=== PATIENT | female | born 1945 | race Caucasian/White ===

== ENCOUNTER 2018-04-15 13:12 | Outpatient (CLI) | payer MEDICARE | END 2018-04-15 13:13 | disposition home or self-care (01) | LOC: BICMAMMO 13:12 | PROVIDERS: ATTEND Internal Medicine Medical Oncology | DX: Z12.31 Encounter for screening mammogram for malignant neoplasm of breast (principal); R92.1 Mammographic calcification found on diagnostic imaging of breast; Z85.3 Personal history of malignant neoplasm of breast; Z80.3 Family history of malignant neoplasm of breast | CPT/HCPCS: 77065; G0279 ==

== ENCOUNTER 2019-06-03 13:52 | Outpatient (CLI) | payer MEDICARE ==
--- NOTE | 2019-06-03 15:43 | BD ---
Exam: DEXA Bone Density 06/03/19 COMPARISON: 01/14/14 HISTORY: 74-year-old postmenopausal female for screening. FINDINGS: Lumbar Spine: BMD (g/cm2) T-SCORE L1 0.823 -1.5 L2 0.791 -2.2 L3 0.926 -1.4 L4 0.910 -1.4 L1-L4 0.867 -1.6 Left Femoral Neck: 0.595 -2.3 Total Proximal Femur: 0.853 -0.7 Impression:Osteopenia. This patient has a ten year WHO fracture risk of a major osteoporotic of 13% and hip fracture of 3.5% . When compared to the prior examination, the bone density in the spine has increased approximately 4 % and the bone density in the hip has not changed significantly. POS: TPC
--- NOTE | 2019-06-03 15:52 | MMO ---
Bilateral MAMMO Bilat Screen [facility]DI[facility]YONG. CLINICAL HISTORY: Patient is 74 years old and is seen for screening. The patient has no family history of breast cancer. 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 The patient has a history of right Lumpectomy in 2009 - malignant and right Excisional Biopsy in September, - malignant. VIEWS: The views performed were: bilateral craniocaudal with tomosynthesis and bilateral mediolateral oblique with tomosynthesis. FILMS COMPARED: The present examination has been compared to prior imaging studies performed at [facility] on 03/22/2016, 03/28/2017, 04/02/2018 and 04/15/2018. This study has been interpreted with the assistance of computer-aided detection. MAMMOGRAM FINDINGS: The breasts are heterogeneously dense, which could obscure a lesion on mammography. Finding 1: There are stable post operative changes seen in the right breast. Finding 2: There are stable benign appearing calcifications seen in both breasts. There are no suspicious masses, suspicious calcifications, or new areas of architectural distortion. IMPRESSION: THERE IS NO MAMMOGRAPHIC EVIDENCE OF MALIGNANCY. A ROUTINE FOLLOW-UP MAMMOGRAM IN 1 YEAR IS RECOMMENDED. THE RESULTS OF THIS EXAM WERE SENT TO THE PATIENT. ACR BI-RADS Category 2 - Benign finding MAMMOGRAPHY NOTE: 1. A negative mammogram report should not delay a biopsy if a dominant of clinically suspicious mass is present. 2. Approximately 10% to 15% of breast cancers are not detected by mammography. 3. Adenosis and dense breasts may obscure an underlying neoplasm. Reported by: MIMI SHAHID MD Electonically Signed: [id number]
== END 2019-06-03 13:53 | disposition home or self-care (01) ==
LOC: BICMAMMO 13:52
PROVIDERS: ATTEND Internal Medicine Medical Oncology
DX: Z12.31 Encounter for screening mammogram for malignant neoplasm of breast (principal); C50.919 Malignant neoplasm of unspecified site of unspecified female breast; M85.80 Other specified disorders of bone density and structure, unspecified site; M85.852 Other specified disorders of bone density and structure, left thigh
CPT/HCPCS: 77063; 77067; 77080

== ENCOUNTER 2019-07-08 20:16 | Observation (INO) | payer MEDICARE ==
--- NOTE | 2019-07-08 21:21 | CT ---
CT Cervical Spine WO Con Indication: History of fall with left arm numbness COMPARISON: None. FINDINGS: Fracture: None. Spinal alignment: There is anterior translation of C4 on C5 which is likely degenerative. Craniocervical junction: Within normal limits. Vertebral body heights: Maintained. Cervical spine degenerative change: There is moderate multilevel spondylosis of the cervical spine wi th multilevel facet and disc degenerative disease. Disc degenerative disease is pronounced at C3-4 and C4-5. There is a prominent disc osteophyte complex with uncovertebral hypertrophy on the left at C5-C6 causing severe left and mild right neural foraminal narrowing. There is uncovertebral hypertrophy and facet degenerative change on the left at C6-7 inducing moderate to severe left neural foraminal narrowing. Lung apices: Pleural parenchymal scarring involving both lung apices. IMPRESSION: No acute fracture or subluxation demonstrated. Moderate spondylosis of the cervical spine with left-sided neural foraminal narrowing at C5-6 and C6- 7
--- NOTE | 2019-07-08 22:18 | PDOC.FPRHP ---
- History of Present Illness Chief Complaint: Paresthesia History of Present Illness: 74yo female pt presented to outside ED [facility] complaining of left arm numbness and weakness. 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 She related the feeling as similar to when she has laid on her arm for a long time in the past. Pt received a CT of her head which showed chronic ischemic changes and was subsequently transferred here for further workup. Upon arrival she received a CT spine which showed arthritic changes. Pt denied any continued symptoms at time of evaluation. She denied ever experiencing any changes in speech, gait, facial droop, or numbness/ weakness anywhere other than her left arm. Pt notes a hx of HLD that is not currently treated per pt preference. Pt had a fall last week resulting in her striking the right side of her face on the concrete w/ subsequent periorbital ecchymosis. She denies any neurologic sx following her fall. - Allergies/Adverse Reactions Allergies Allergy/AdvReac Type Severity Reaction Status Date / Time erythromycin base Allergy blisters Verified 07/09/19 00:50 on palm of hand Penicillins Allergy Hives Verified 07/09/19 00:50 - Home Medications Medication Instructions Recorded Confirmed Type Aspirin [Ecotrin Low Strength] 81 mg PO DAILY tab 07/09/19 Rx Atorvastatin Calcium [Lipitor] 40 mg PO HS #30 tab 07/09/19 Rx - History PMHx: Breast cancer, HLD PSHx: Lumpectomy FHx: Non contributory Social: Denies hx of tobacco or drug use. Notes very occasional alcohol consumption. - Review of Systems General: denies: fever/chills, fatigue Eyes: denies: vision changes, other ENT: denies: nasal congestion, rhinorrhea Respiratory: denies: cough, shortness of breath Cardiovascular: denies: chest pain, edema Gastrointestinal: denies: nausea, vomiting, diarrhea Genitourinary: denies: dysuria, polyuria Skin: reports: other (ecchymosis). denies: rashes, lesions Musculoskeletal: denies: pain, tenderness Neurological: reports: numbness, weakness. denies: syncope, seizure Psychological: denies: anxiety, depression, other - Vital signs BP: 132/72, Pulse: 93, Resp: 18, Temp: 97.8 (Oral), Pain: 0, O2 sat: 96 on Room Air - Physical Exam Constitutional: NAD, awake, alert and oriented, well developed HEENT: normocephalic and atraumatic, PERRLA, EOMI, grossly normal vision, grossly normal hearing Neck: supple, FROM (without pain or radiating sx) Heart: RRR, normal S1/S2, no murmurs/rubs/gallops Lungs: CTAB, no respiratory distress, good air movement Abdomen: soft, non-tender Musculoskeletal: normal structure, normal tone Neurological: no focal deficit, CN II-XII intact, normal sensation, DTRs 2+ Skin: no rash/lesions, good turgor Heme/Lymphatic: no unusual bruising or bleeding, no purpura Psychiatric: normal mood and affect, good judgment and insight, intact recent and remote memory FMR H&P: Results - Labs Result Diagrams: 07/09/19 04:52 - Radiology Interpretation Other Status: report reviewed by me (CT neck No acute fracture or subluxation demonstrated. Moderate spondylosis of the cervical spine with left-sided neural foraminal narrowing at C5-6 and C6- 7) CT scan - head Status: report reviewed by me (Mild chronic ischemic white matter changes. No acute abnormality) FMR H&P: A/P - Problem List (1) Cervical radiculopathy Status: Acute Code(s): M54.12 - RADICULOPATHY, CERVICAL REGION (2) HLD (hyperlipidemia) Status: Acute Code(s): E78.5 - HYPERLIPIDEMIA, UNSPECIFIED Qualifiers: Hyperlipidemia type: unspecified Qualified Code(s): E78.5 - Hyperlipidemia , unspecified (3) Elevated blood pressure reading Status: Acute Code(s): R03.0 - ELEVATED BLOOD-PRESSURE READING, W/O DIAGNOSIS OF HTN - Plan Paresthesias 2/2 Cervical Radiculopathy vs TIA - CT findings as above - MRI w/o contrast brain and cervical spine - Admit to stroke floor for neuro checks - Will initiate asa and statin therapy - TSH ordered - FLP and A1c to risk stratify HLD - Known to pt, untreated per pt preference - Discussed statin therapy benefits, will empirically initiate at this time Diet: HH Code: Full Dispo: Admit to stroke obs for further neuro imaging and neuro checks. Expected LOS < 48 hrs PCP: None FMR H&P: Upper Level - Plan Date/Time: 07/08/192217 I, Alton Ornelas MD, have evaluated this patient and agree with findings/plan as outlined by medical intern resident. Pertinent changes/additions are listed here. Levi Beaver is a 74 year old F with no significant PMH who presented to outside ED for evaluation of left arm numbness. States that numbness started earlier in the day. She has had numbness like this occasionally in the past. Denies any pain or weakness in the arm or other extremities. Denied neck pain. Denies any difficulty speaking or facial droop. In the ED, CT brain was done and showed chronic ischemic changes. Pt was transferred to [facility] ER for further work up. Patient had a CT cervical spine done that showed left sided neural foraminal narrowing at C5-C6. She denied any chest pain, dyspnea, n/v, diaphoresis. Patient states that numbness had resolved in the ED. Pt's vitals were stable and wnl in the ED. She is being admitted for sensory deficits and work up for TIA r/o CVA. Symptoms could be 2/2 cervical radiculopathy. Ordered brain MRI and neck MRI, as well as carotid dopplers. Will start aspirin and statin. Anticipate hospital stay < 48 hours and d/c home. Please see medical intern note above for full H&P, which I have reviewed and agree with. Addendum - Attending - Attending Attestation Date/Time: 07/09/192048 I personally evaluated the patient and discussed the management with Dr. Dawson and Johnson on 07/08. I agree with the History, Examination, Assessment and Plan documented above with any addition or exceptions noted below. Very pleasant 74 y/o female. No current symptoms. Unremarkable neurologic exam. W/u as above.
[2019-07-08 22:35] LABS: Troponin I Less than 0.010 ng/mL (< 0.028)
[2019-07-09] MEDS ORDERED: Acetaminophen 325 MG TAB PO PRN (00:17)
[2019-07-09 01:06] VITALS: BMI 23.1
[2019-07-09 01:26] LABS: Troponin I Less than 0.010 ng/mL (< 0.028)
--- NOTE | 2019-07-09 05:32 | PDOC.FM ---
- Subjective Subjective: Patient states that she had recurrent sensation of left hand pain and numbness overnight, this improved shortly after repositioning herself. Otherwise denies chest pain/tightness, sob, nausea/vomiting. - Objective MAR Reviewed: Yes Vital Signs & Weight: Vital Signs (12 hours) Temp Pulse Resp BP BP Pulse Ox 07/09/19 02:05 76 18 134/67 96 07/09/19 00:30 97.9 F 81 15 168/69 H 96 Weight Weight 61.235 kg I&O: 07/07/19 07/08/19 07/09/19 06:59 06:59 06:59 Intake Total 200 Output Total 450 Balance -250 Result Diagrams: 07/09/19 04:52 Phys Exam - Physical Examination Constitutional: NAD HEENT: moist MMs, sclera anicteric Neck: no JVD, supple, full ROM Respiratory: no wheezing, no rhonchi, clear to auscultation bilateral Cardiovascular: RRR, no significant murmur Gastrointestinal: no distention, positive bowel sounds Musculoskeletal: no edema, pulses present Neurological: normal sensation, moves all 4 limbs Psychiatric: normal affect, A&O x 3 Skin: no rash, normal turgor Dx/Plan (1) Cervical radiculopathy Code(s): M54.12 - RADICULOPATHY, CERVICAL REGION Status: Acute (2) Elevated blood pressure reading Code(s): R03.0 - ELEVATED BLOOD-PRESSURE READING, W/O DIAGNOSIS OF HTN Status : Acute (3) HLD (hyperlipidemia) Code(s): E78.5 - HYPERLIPIDEMIA, UNSPECIFIED Status: Acute Qualifiers: Hyperlipidemia type: unspecified Qualified Code(s): E78.5 - Hyperlipidemia , unspecified - Plan Plan: Patient is a 74 yo female who presents with left arm paresthesias is admitted for further workup: #Left Arm Paresthesias - most likely 2/2 Cervical Radiculopathy vs TIA - CT neck: left sided neural foraminal narrowing at C5-6 & C6-7 - Ordered MRI w/o contrast brain and cervical spine - Carotid dopplers show no significant stenosis - q4h neuro checks - Start asa and statin therapy - TSH pending - FLP and A1c pending to risk stratify #HLD - Known to pt, untreated per pt preference - Discussed statin therapy benefits, will empirically initiate at this time Diet: HH VTE: SCDs Code: FULL Dispo: Admit to stroke obs for further neuro imaging and neuro checks. Labs pending. Expected LOS < 48 hrs PCP: Liya
[2019-07-09 05:55] LABS: Hemoglobin A1c 5.3 % (4.0-6.0)
[2019-07-09 06:11] LABS: Anion Gap 13 mmol/L (10-20); BUN (Urea Nitrogen) 9 mg/dL (9.8-20.1); Calc. Creatinine Clearance 69 mL/min (70-130); Calcium 8.8 mg/dL (7.8-10.44); Carbon Dioxide 27 mmol/L (23-31); Cardiac Risk 7.5 (Less than 4.5); Chloride 104 mmol/L (98-107); Cholesterol 330 mg/dl (< 200 Desired); Estimated GFR-MDRD 82; Glucose 87 mg/dL (83-110); HDL Cholesterol 44 mg/dL (>60 Neg Risk); LDL Cholesterol, Calculated 258 mg/dL; Potassium 3.5 mmol/L (3.5-5.1); Sodium 140 mmol/L (136-145); Triglycerides 141 mg/dL (Less than 150)
[2019-07-09 06:15] LABS: Troponin I Less than 0.010 ng/mL (< 0.028)
--- NOTE | 2019-07-09 08:26 | ULT ---
ULTRASOUND CAROTID DOPPLER: History: Stroke like symptoms Comparison: None. Findings: Real-time grayscale, color, and spectral analysis of the extracranial, carotid, and vertebral arterie s was performed. Antegrade flow both vertebral arteries. No elevated peak systolic velocities within the internal bearden tid arteries. Impression: No hemodynamically significant stenosis. Transcribed Date/Time: 07/09/2019 8:51 AM
[2019-07-09] MEDS ORDERED: Aspirin 81 mg Enteric Coated Tablet PO SCH (09:00)
--- NOTE | 2019-07-09 09:21 | MRI ---
MRI BRAIN NONCONTRAST: Date: 07/09/19 HISTORY: CVA. Recent fall. FINDINGS: There is no evidence of acute intracranial hemorrhage or infarct. Ventricles appear normal in size, s hape, and position. Mild diffuse cortical atrophy and minimal chronic ischemic small vessel disease. There is no mass effect or shift of midline structures. Visualized paranasal sinuses remain well aera paola. IMPRESSION: Mild age-related changes. No acute intracranial abnormalities are demonstrated. POS: TPC
--- NOTE | 2019-07-09 11:26 | PRG ---
DATE OF SERVICE: 07/09/2019 Ms. Beaver is a very pleasant 74-year-old lady, who was admitted with some intermittent transient numbness and weakness in her left arm. For completeness sake, she was admitted to rule out TIA/CVA. Thus far, her MRI shows no acute changes. Her carotid Doppler showed no hemodynamically significant stenosis. Her symptoms are really more consistent with a cervical radiculopathy versus possible carpal tunnel syndrome. In the event, I would recommend discharge today with followup EMG nerve conduction studies as an outpatient. Job ID: [id number]
[2019-07-09 11:41] VITALS: BP 123/60; TEMP 98.6
[2019-07-09] MEDS ORDERED: Atorvastatin Calcium 40 MG TAB PO SCH (21:00)
--- NOTE | 2019-07-10 08:01 | DIS ---
DATE OF ADMISSION: 07/08/2019 DATE OF DISCHARGE: 07/09/2019 RESIDENT: Mayuri Gutierres DO ADMITTING ATTENDING: David Rios MD DISCHARGE ATTENDING: King Stephens MD CONSULTS: None. PROCEDURES: 1. Cervical spine CT on July 08, 2019: Moderate spondylosis of the cervical spine with left-sided neural foraminal narrowing at C5-C6 and C6-C7. 2. Chest x-ray on July 08, 2019: No acute finding. 3. Brain CT on July 08, 2019: No acute abnormality. Mild chronic ischemic white matter change. 4. Brain MRI on July 09, 2019: Mild age-related changes. No acute intracranial abnormalities are demonstrated. 5. Carotid Doppler study: No evidence of significant stenosis. PRIMARY DIAGNOSIS: Cervical radiculopathy. SECONDARY DIAGNOSES: 1. Left arm paresthesias. 2. Hyperlipidemia. DISCHARGE MEDICATIONS: 1. Aspirin 81 mg p.o. daily. 2. Atorvastatin 40 mg p.o. at bedtime. DISCONTINUED MEDICATIONS: None. HISTORY OF PRESENT ILLNESS/HOSPITAL COURSE: The patient is a 74-year-old female , who presented to [facility] earlier in the evening with complaints of left arm numbness and weakness. 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 She related the feelings as being similar to when she was laying on her arm for an extended period of time in the past. The patient received a CT of her head, which showed chronic ischemic changes and was subsequently transferred to [facility] for further workup. Upon arrival at this facility, she received a CT of her cervical spine, which showed arthritic changes as well as neural foraminal narrowing on the left side from C5 through C7. The patient denied any continued symptoms at the time of her initial evaluation. She also denied ever experiencing any changes in speech, gait, facial droop, or numbness/weakness anywhere other than her left arm. The patient does note that she has a history of hyperlipidemia, but that I did not currently treat it per her preference. She has declined statin treatment in the past. The patient did have a fall last week, resulting in the striking of the right side of her face on concrete with subsequent periorbital ecchymosis. She denied any neurological symptoms following her fall. The patient was admitted for observation on the telemetry/stroke unit. Throughout the night on July 08 to 2018, the patient said she had one episode of her left arm and hand going numb with tingling pain almost "as if that was going to sleep." She said these sensations were improved when she repositioned herself. A carotid Doppler study was performed, which showed no significant stenosis. An MRI without contrast of the brain and cervical spine was performed , which just showed age-related changes. Neuro checks were normal. An A1c was ordered, which was 5.3%. Lipid panel was ordered, which showed total cholesterol of 330, LDL 258, HDL 44, heart disease risk ratio 7.5. At that time, aspirin 81 mg and atorvastatin 40 mg daily therapy was initiated. The patient was also given prescriptions for these medications upon discharge. Later in the morning on July 09, 2019, due to patient being well-appearing, normal exam, and normal imaging studies, the patient was deemed stable for discharge back to home. DISPOSITION: Stable. DISCHARGE INSTRUCTIONS: 1. Location: Home. 2. Diet: Heart healthy. 3. Activity: As tolerated. 4. Follow up with PCP in 3 to 5 days for hospital followup. Job ID: [id number] AJAY
== END 2019-07-09 12:17 | disposition home or self-care (01) ==
LOC: ERS 20:16 → 2SW 07-09 00:12
PROVIDERS: ADMIT Emergency Medicine; ATTEND Emergency Medicine
DX: M47.22 Other spondylosis with radiculopathy, cervical region (principal); R20.2 Paresthesia of skin; E78.5 Hyperlipidemia, unspecified; R03.0 Elevated blood-pressure reading, without diagnosis of hypertension; Z88.0 Allergy status to penicillin; Z88.1 Allergy status to other antibiotic agents
CPT/HCPCS: 70551; 72125; 80048; 80061; 83036; 84443; 84484 ×3; 93880; 94760; 97139 ×3; 99285; G0378; 36415

== ENCOUNTER 2020-08-02 14:30 | Outpatient (CLI) | payer MEDICARE ==
--- NOTE | 2020-08-02 15:47 | BD ---
EXAM: Bone densitometry using DEXA HISTORY: 75 yo female. Screening for postmenopausal osteoporosis FINDINGS: L1--bone mineral density 0.806 g/sq cm; T score -1.7 ; Z score 0.4 L2--bone mineral density 0.796 g/sq cm; T score -2.1 ; Z score 0.2 L3--bone mineral density 0.943 g/sq cm; T score -1.3 ; Z score 1.2 L4--bone mineral density 0.939 g/sq cm; T score -1.1 ; Z score 1.4 Total L1-L4--bone mineral density 0.877 g/sq cm; T score -1.5 ; Z score 0.8 Left femoral neck--bone mineral density0.585; T score -2.4 ; Z score -0.3 Total proximal left femur--bone mineral density 0.791; T score -1.2 ; Z score 0.5 There has been an interval improvement of 1.1% in the BMD of the lumbar spine and a reduction of 7. 3% in the BMD of the proximal femur since the previous study of 06/03/2019. The 10 year fracture risk for a major osteoporotic fracture is 15% and for a hip fracture is 4.5%. IMPRESSION: Osteopenia
--- NOTE | 2020-08-02 16:03 | MMO ---
Bilateral MAMMO Bilat Screen DDI+YONG. CLINICAL HISTORY: Patient is 75 years old and is seen for screening. The patient has the following family history of breast cancer: maternal aunt. The patient has a history of Ultrasound guided core biopsy procedure revealed invasive ductal right breast carcinoma in October, and malignant (generic) in the right breast 2009. The patient has a history of right Lumpectomy in 2009 - malignant and right Excisional Biopsy in September, - malignant. VIEWS: The views performed were: bilateral craniocaudal with tomosynthesis and bilateral mediolateral oblique with tomosynthesis. FILMS COMPARED: The present examination has been compared to prior imaging studies performed at [facility] on 03/28/2017, 04/02/2018, 04/15/2018 and 06/03/2019. This study has been interpreted with the assistance of computer-aided detection. MAMMOGRAM FINDINGS: The breasts are heterogeneously dense, which could obscure a lesion on mammography. Benign calcifications are noted bilaterally. There are stable right post-operative changes. There are no suspicious masses, suspicious calcifications, or new areas of architectural distortion. IMPRESSION: THERE IS NO MAMMOGRAPHIC EVIDENCE OF MALIGNANCY. A ROUTINE FOLLOW-UP MAMMOGRAM IN 1 YEAR IS RECOMMENDED. THE RESULTS OF THIS EXAM WERE SENT TO THE PATIENT. ACR BI-RADS Category 2 - Benign finding MAMMOGRAPHY NOTE: 1. A negative mammogram report should not delay a biopsy if a dominant of clinically suspicious mass is present. 2. Approximately 10% to 15% of breast cancers are not detected by mammography. 3. Adenosis and dense breasts may obscure an underlying neoplasm. Reported by: TIFFANY ALVARADO MD Electonically Signed: [id number]
== END 2020-08-02 14:31 | disposition home or self-care (01) ==
LOC: BICMAMMO 14:30
PROVIDERS: ATTEND Internal Medicine Medical Oncology
DX: Z12.31 Encounter for screening mammogram for malignant neoplasm of breast (principal); N95.8 Other specified menopausal and perimenopausal disorders; M85.89 Other specified disorders of bone density and structure, multiple sites; Z85.3 Personal history of malignant neoplasm of breast; Z80.3 Family history of malignant neoplasm of breast
CPT/HCPCS: 77063; 77067; 77080

== ENCOUNTER 2021-10-02 13:09 | Outpatient (CLI) | payer MEDICARE | END 2021-10-02 13:10 | disposition home or self-care (01) | LOC: BICMAMMO 13:09 | PROVIDERS: ATTEND Internal Medicine Medical Oncology | DX: Z12.31 Encounter for screening mammogram for malignant neoplasm of breast (principal); M85.80 Other specified disorders of bone density and structure, unspecified site; M81.0 Age-related osteoporosis without current pathological fracture; Z80.3 Family history of malignant neoplasm of breast; Z85.3 Personal history of malignant neoplasm of breast; Z98.890 Other specified postprocedural states | CPT/HCPCS: 77063; 77067; 77080 ==

== ENCOUNTER 2022-11-20 13:18 | Outpatient (CLI) | payer MEDICARE, OTHER | END 2022-11-20 13:19 | disposition home or self-care (01) | LOC: BICMAMMO 13:18 | PROVIDERS: ATTEND Internal Medicine Medical Oncology | DX: Z12.31 Encounter for screening mammogram for malignant neoplasm of breast (principal); C50.411 Malignant neoplasm of upper-outer quadrant of right female breast; M89.9 Disorder of bone, unspecified; Z98.890 Other specified postprocedural states; Z80.3 Family history of malignant neoplasm of breast | CPT/HCPCS: 77063; 77067; 77080 ==